=== PATIENT | female | born 1980 | race Two or more races ===

== ENCOUNTER 2017-07-09 19:01 | Emergency (ER) | payer MEDICAID ==
[~2017-07-09] VITALS: Ht 154.9 cm; Wt 104.3 kg
[~2017-07-09 19:01] MED LIST: PREN-145 OR
[2017-07-09] MEDS ORDERED: cloNIDine HCL 0.1 MG TAB ONE (19:15)
[2017-07-09 19:18] VITALS: BP 190/97
[2017-07-09] MEDS ORDERED: cloNIDine HCL 0.1 MG TAB PO ONE (19:30)
[2017-07-09 19:51] LABS: Basophils # (auto) 0.1 uL; Basophils % (auto) 0.8 % (0.0-2.0); Eosinophils # (auto) 0.2 uL; Eosinophils % (auto) 1.8 % (0.0-7.0); Hematocrit 41.2 % (36.0-46.0); Hemoglobin 13.8 g/dL (12.2-16.2); Lymphocytes # (auto) 2.7 uL; Lymphocytes % (auto) 28.1 % (10.0-50.0); Mean Corpuscular Hemoglobin 29.9 pg (28.0-32.0); Mean Corpuscular Hgb Conc. 33.6 g/dL (32.0-36.0); Monocytes # (auto) 0.6 uL; Monocytes % (auto) 6.4 % (0.0-12.0); Neutrophils # (auto) 6.1 uL; Neutrophils % (auto) 62.9 % (37.0-80.0); Platelet Count (auto) 234 10^3/uL (140-450); Red Blood Cells 4.63 10^6/uL (4.0-5.20); Red Cell Distribution Width 13.6 % (11.8-14.3); White Blood Cell 9.6 10^3/uL (4.4-10.8)
[2017-07-09 20:12] LABS: Albumin 3.9 g/dL (3.4-5.0); BUN/Creatinine Ratio 15.3; Bilirubin, Total 0.2 mg/dL (0.2-1.0); Calcium 9.1 mg/dL (8.5-10.1); Potassium 4.1 mmol/L (3.5-5.1); Total Protein 7.5 g/dL (6.4-8.2)
== END 2017-07-09 23:58 | disposition left against medical advice (07) ==
LOC: ER 19:01
DX: M54.2 Cervicalgia (principal); Z53.21 Procedure and treatment not carried out due to patient leaving prior to being seen by health care provider
CPT/HCPCS: 36415; 80053; 85025

== ENCOUNTER 2017-07-12 11:10 | Emergency (ER) | payer MEDICAID, OTHER ==
[~2017-07-12] VITALS: Ht 154.9 cm; Wt 86.2 kg
[2017-07-12 12:28] LABS: Basophils # (auto) 0.1 uL; Basophils % (auto) 0.8 % (0.0-2.0); Eosinophils # (auto) 0.2 uL; Hematocrit 43.3 % (36.0-46.0); Hemoglobin 14.5 g/dL (12.2-16.2); Lymphocytes # (auto) 2.3 uL; Lymphocytes % (auto) 29.1 % (10.0-50.0); Mean Corpuscular Hemoglobin 29.7 pg (28.0-32.0); Mean Corpuscular Hgb Conc. 33.5 g/dL (32.0-36.0); Mean Corpuscular Volume 88.7 fL (80.0-100.0); Monocytes # (auto) 0.4 uL; Monocytes % (auto) 4.6 % (0.0-12.0); Neutrophils # (auto) 5.1 uL; Neutrophils % (auto) 63.5 % (37.0-80.0); Nucleated Red Blood Cells % 0.1 %; Platelet Count (auto) 230 10^3/uL (140-450); Red Blood Cells 4.89 10^6/uL (4.0-5.20); Red Cell Distribution Width 13.4 % (11.8-14.3)
[2017-07-12 12:45] LABS: Albumin 3.8 g/dL (3.4-5.0); BUN/Creatinine Ratio 11.3; Calcium 8.6 mg/dL (8.5-10.1); Potassium 4.2 mmol/L (3.5-5.1)
[2017-07-12 12:49] LABS: Bilirubin, Total 0.4 mg/dL (0.2-1.0); Total Protein 7.5 g/dL (6.4-8.2)
[2017-07-12 13:22] LABS: Urine Blood 1+ /uL (Negative); Urine Specific Gravity 1.018 (1.001-1.035)
[2017-07-12 13:23] LABS: Urine WBC 6 /hpf (0 - 5)
[2017-07-12 13:24] LABS: Urine Bacteria MANY /hpf (None Seen)
[2017-07-12 14:43] VITALS: BP 144/88
== END 2017-07-12 14:46 | disposition home or self-care (01) ==
LOC: ER 11:10
DX: S33.5XXA Sprain of ligaments of lumbar spine, initial encounter (principal); N39.0 Urinary tract infection, site not specified; X58.XXXA Exposure to other specified factors, initial encounter; Y93.89 Activity, other specified; Y92.89 Other specified places as the place of occurrence of the external cause; Y99.8 Other external cause status
CPT/HCPCS: 36415; 72100; 80053; 81001; 81025; 85025

== ENCOUNTER 2021-01-03 00:57 | Inpatient (IN) | payer MEDICAID ==
[~2021-01-03] VITALS: Ht 154.9 cm; Wt 110.3 kg
[2021-01-03 02:20] LABS: Basophils # (auto) 0.1 10 ^3/uL (0-0.2); Basophils % (auto) 0.4 % (0.0-2.0); Eosinophils # (auto) 0.2 10 ^3/uL (0-0.8); Eosinophils % (auto) 1.5 % (0.0-7.0); Hematocrit 39.2 % (36.0-46.0); Hemoglobin 12.9 g/dL (12.2-16.2); Lymphocytes # (auto) 2.5 10 ^3/uL (0.4-5.4); Lymphocytes % (auto) 19.3 % (10.0-50.0); Mean Corpuscular Hemoglobin 27.8 pg (28.0-32.0); Mean Corpuscular Hgb Conc. 32.9 g/dL (32.0-36.0); Mean Corpuscular Volume 84.5 fL (80.0-100.0); Monocytes # (auto) 0.6 10 ^3/uL (0-1.3); Monocytes % (auto) 4.9 % (0.0-12.0); Neutrophils # (auto) 9.5 10 ^3/uL (1.6-8.6); Neutrophils % (auto) 73.9 % (37.0-80.0); Red Blood Cells 4.63 10^6/uL (4.0-5.20); Red Cell Distribution Width 14.4 % (11.8-14.3); White Blood Cell 12.9 10^3/uL (4.4-10.8)
[2021-01-03 02:51] LABS: Albumin 3.6 g/dL (3.4-5.0); Calcium 8.7 mg/dL (8.5-10.1); Potassium 3.4 mmol/L (3.5-5.1)
[2021-01-03 02:53] LABS: BUN/Creatinine Ratio 11.7
[2021-01-03 02:55] LABS: Bilirubin, Total 0.4 mg/dL (0.2-1.0); Total Protein 7.6 g/dL (6.4-8.2)
[2021-01-03 04:56] LABS: Urine Bacteria MANY /hpf (None Seen); Urine Blood 1+ /uL (Negative); Urine Hyaline Cast FEW /lpf (0 - 2); Urine Mucus FEW (None Seen); Urine Specific Gravity 1.027 (1.001-1.035); Urine WBC 20 /hpf (0 - 5)
[2021-01-03] MEDS ORDERED: ONDANSETRON HCL 4 MG/2 ML VIAL IV ONE (07:00)
[2021-01-03] MEDS ORDERED: MORPHINE SULFATE 4 MG/ML SYR/VIAL IV ONE (07:00)
[2021-01-03] MEDS ORDERED: cloNIDine HCL 0.1 MG TAB PO ONE (07:00)
[2021-01-03] MEDS ORDERED: metroNIDAZOLE 500MG/100ML 100 ML IV ONE (11:15)
[2021-01-03] MEDS ORDERED: cefTRIAXone 1GM/50ML D5W 50 ML IV ONE (11:15)
[2021-01-03] MEDS ORDERED: LACTATED RINGER'S 1,000 ML IV ONE (11:45)
[2021-01-03] MEDS ORDERED: NITROGLYCERIN 0.4 MG SL TAB SL PRN ×2 (11:45→13:00)
[2021-01-03] MEDS ORDERED: MORPHINE SULFATE INJECTION 2 MG/ML SYRG IV PRN ×3 (11:45→13:00)
[2021-01-03] MEDS ORDERED: PANTOPRAZOLE 40 MG/10 ML VIAL INJ IV ONE (13:00)
[2021-01-03] MEDS ORDERED: ONDANSETRON HCL 4 MG/2 ML VIAL IV PRN (13:00)
[2021-01-03] MEDS ORDERED: BENAZEPRIL HCL 10 MG TAB PO ONE (13:00)
[2021-01-03] MEDS ORDERED: HYDROcodone-ACET 5/325MG TAB PO PRN (13:00)
[2021-01-03] MEDS ORDERED: DOCUSATE SOD 100 MG CAP PO PRN (13:00)
[2021-01-03] MEDS ORDERED: LORazepam 0.5 MG TAB PO PRN (13:00)
[2021-01-03] MEDS ORDERED: ACETAMINOPHEN 325 MG TAB PO PRN (13:00)
[2021-01-03] MEDS ORDERED: hydrALAZINE HCL 20 MG/ML VL IV PRN (13:00)
[2021-01-03] MEDS ORDERED: POTASSIUM CHL 20MEQ/100ML 100 ML IV ONE (13:00)
[2021-01-03] MEDS ORDERED: NIFEdipine ER 30 MG TAB PO ONE (13:00)
[2021-01-03] MEDS ORDERED: ALUM & MAG HYDROX-SIMETH LIQ(MAALOX) 30 ML PO PRN (13:00)
[2021-01-03 14:23] LABS: Alcohol, Urine < 3.0 mg/dL (0-10); Amphetamine Screen, Urine NEGATIVE (NEGATIVE); Barbiturate Scree,Urine NEGATIVE (NEGATIVE); Benzodiazephine Screen, Urine NEGATIVE (NEGATIVE); Cannabinoid Screen, Urine NEGATIVE (NEGATIVE); Cocaine Screen, Urine NEGATIVE (NEGATIVE); Opiate Scree,Urine NEGATIVE (NEGATIVE); Phencyclidine Screen, Urine NEGATIVE (NEGATIVE)
[2021-01-03] MEDS ORDERED: GASTROGRAFIN 120 ML SOL ONE (14:39)
[2021-01-03 14:51] LABS: Cholesterol 118 mg/dL (< 200); HDL Cholesterol 43 mg/dL (40-59); LDL Cholesterol 68 mg/dL (< 100); Triglycerides 61 mg/dL (< 150)
[2021-01-03] MEDS: SODIUM CHLORIDE 0.9% 1,000 ML IV SCH ×2 (16:40→20:27)
[2021-01-03] MEDS ORDERED: INFLUENZA QUAD 2021-2022 0.5 ML SYRG IM ONE (19:00)
[2021-01-03] MEDS: metroNIDAZOLE 500MG/100ML 100 ML IV SCH (20:27)
[2021-01-03] MEDS: ATORVASTATIN 20 MG TAB PO SCH (20:27)
[2021-01-03 22:00] VITALS: BP 111/71
[2021-01-04 05:00] VITALS: BP 108/64
[2021-01-04] MEDS: metroNIDAZOLE 500MG/100ML 100 ML IV SCH ×3 (05:20→22:20)
[2021-01-04 09:00] VITALS: BP 126/86
[2021-01-04] MEDS: ASPirin 81 mg TAB PO SCH (09:47)
[2021-01-04] MEDS: cefTRIAXone 1GM/50ML D5W 50 ML IV SCH (09:47)
[2021-01-04] MEDS: PANTOPRAZOLE 40 MG/10 ML VIAL INJ IV SCH (09:47)
[2021-01-04] MEDS: NIFEdipine ER 30 MG TAB PO SCH (09:48)
[2021-01-04] MEDS: BENAZEPRIL HCL 10 MG TAB PO SCH (09:48)
[2021-01-04] MEDS ORDERED: ENOXAPARIN SOD 40 MG/0.4 ML SYRINGE SC SCH (10:00)
[2021-01-04 13:00] VITALS: BP 117/65
[2021-01-04 17:00] VITALS: BP 125/73
[2021-01-04 22:00] VITALS: BP 124/72
[2021-01-04] MEDS: ATORVASTATIN 20 MG TAB PO SCH (22:20)
[2021-01-04] MEDS: ENOXAPARIN SOD 40 MG/0.4 ML SYRINGE SC SCH (22:20)
[2021-01-05] MEDS: SODIUM CHLORIDE 0.9% 1,000 ML IV SCH ×2 (01:29→13:32)
[2021-01-05 05:00] VITALS: BP 127/69
[2021-01-05] MEDS: metroNIDAZOLE 500MG/100ML 100 ML IV SCH ×2 (05:44→13:31)
[2021-01-05 06:50] LABS: Basophils # (auto) 0 10 ^3/uL (0-0.2); Basophils % (auto) 0.3 % (0.0-2.0); Eosinophils # (auto) 0.1 10 ^3/uL (0-0.8); Hematocrit 36.1 % (36.0-46.0); Hemoglobin 12.1 g/dL (12.2-16.2); Lymphocytes # (auto) 1.7 10 ^3/uL (0.4-5.4); Lymphocytes % (auto) 15.6 % (10.0-50.0); Mean Corpuscular Hemoglobin 28.2 pg (28.0-32.0); Mean Corpuscular Hgb Conc. 33.6 g/dL (32.0-36.0); Mean Corpuscular Volume 83.9 fL (80.0-100.0); Monocytes # (auto) 0.6 10 ^3/uL (0-1.3); Monocytes % (auto) 5.8 % (0.0-12.0); Neutrophils # (auto) 8.3 10 ^3/uL (1.6-8.6); Neutrophils % (auto) 77.3 % (37.0-80.0); Nucleated Red Blood Cells % 0.1 %; Red Cell Distribution Width 14.2 % (11.8-14.3); White Blood Cell 10.7 10^3/uL (4.4-10.8)
[2021-01-05 07:15] LABS: Calcium 7.9 mg/dL (8.5-10.1); Potassium 3.1 mmol/L (3.5-5.1)
[2021-01-05 07:18] LABS: BUN/Creatinine Ratio 6.2
[2021-01-05 09:00] VITALS: BP 132/76
[2021-01-05] MEDS: PANTOPRAZOLE 40 MG/10 ML VIAL INJ IV SCH (09:24)
[2021-01-05] MEDS: ENOXAPARIN SOD 40 MG/0.4 ML SYRINGE SC SCH (09:25)
[2021-01-05] MEDS: NIFEdipine ER 30 MG TAB PO SCH (09:25)
[2021-01-05] MEDS: ASPirin 81 mg TAB PO SCH (09:26)
[2021-01-05] MEDS: cefTRIAXone 1GM/50ML D5W 50 ML IV SCH (09:26)
[2021-01-05] MEDS: BENAZEPRIL HCL 10 MG TAB PO SCH (09:26)
[2021-01-05] MEDS ORDERED: POTASSIUM CHL 20 Meq TABLET PO ONE (11:45)
[2021-01-05] MEDS ORDERED: levoFLOXacin 500 MG TAB PO ONE (12:00)
[2021-01-05 13:00] VITALS: BP 125/91
== END 2021-01-05 17:00 | disposition home or self-care (01) | DRG 249 ==
LOC: ER 00:58 → OVERFLOW 12:55 → CENTRAL 17:58
PROVIDERS: ADMIT Hospitalist; ATTEND Hospitalist
DX: K52.9 Noninfective gastroenteritis and colitis, unspecified (principal); E66.01 Morbid (severe) obesity due to excess calories; E78.5 Hyperlipidemia, unspecified; B96.20 Unspecified Escherichia coli [E. coli] as the cause of diseases classified elsewhere; B96.89 Other specified bacterial agents as the cause of diseases classified elsewhere; Z68.42 Body mass index [BMI] 45.0-49.9, adult; I10 Essential (primary) hypertension; I16.9 Hypertensive crisis, unspecified; N39.0 Urinary tract infection, site not specified; Z20.822 Contact with and (suspected) exposure to COVID-19; Z82.49 Family history of ischemic heart disease and other diseases of the circulatory system; Z82.3 Family history of stroke; Z83.3 Family history of diabetes mellitus; Z98.51 Tubal ligation status
CPT/HCPCS: 36415; 71045; 74176; 74250; 76830; 76856; 80048; 80053; 80061; 80307; 81001; 83036; 83605; 83690; 84484; 84702; 85025; 87040; 87086; 87088; 87186; 87426; 90686; 96365; 96366; 96367; 96368; 96375; C9113; G0378; J0696; J2405; J3480; J3490

== ENCOUNTER 2023-11-12 11:36 | Inpatient (IN) | payer MEDICAID ==
[~2023-11-12] VITALS: Ht 154.9 cm; Wt 116.9 kg
[2023-11-12 12:33] LABS: Urine Bacteria None Seen /hpf (None Seen)
[2023-11-12 12:46] LABS: Urine Blood 1+ /uL (Negative); Urine Clarity Clear (Clear); Urine Color Yellow (Yellow); Urine Mucus FEW (None Seen); Urine Protein, UAD Negative (Negative); Urine Specific Gravity 1.013 (1.001-1.035); Urine Urobilinogen Normal (Negative); Urine WBC 1 /hpf (0 - 5)
[2023-11-12 14:01] LABS: Basophils # (auto) 0.1 10 ^3/uL (0-0.2); Eosinophils # (auto) 0.2 10 ^3/uL (0-0.8); Lymphocytes # (auto) 1.3 10 ^3/uL (0.4-5.4); Monocytes # (auto) 0.4 10 ^3/uL (0-1.3); Neutrophils # (auto) 6.6 10 ^3/uL (1.6-8.6); Nucleated Red Blood Cells % 0.1 %; Platelet Count (auto) 242 10^3/uL (140-450); Red Cell Distribution Width 16.1 % (11.8-14.3)
[2023-11-12 14:02] LABS: Basophils % (auto) 0.7 % (0.0-2.0); Eosinophils % (auto) 1.9 % (0.0-7.0); Hematocrit 37.8 % (36.0-46.0); Hemoglobin 12.5 g/dL (12.2-16.2); Lymphocytes % (auto) 14.9 % (10.0-50.0); Mean Corpuscular Hemoglobin 26.6 pg (28.0-32.0); Mean Corpuscular Hgb Conc. 33.2 g/dL (32.0-36.0); Mean Corpuscular Volume 80.2 fL (80.0-100.0); Monocytes % (auto) 4.3 % (0.0-12.0); Neutrophils % (auto) 78.2 % (37.0-80.0); Red Blood Cells 4.71 10^6/uL (4.0-5.20); White Blood Cell 8.5 10^3/uL (4.4-10.8)
[2023-11-12 14:19] LABS: Alanine Aminotransferase 202 U/L (7-40); Alkaline Phosphatase 141 U/L (46-116)
[2023-11-12 14:20] LABS: Albumin 4.4 g/dL (3.2-4.8); Anion Gap 7 (5-15); Aspartate Aminotransferase 271 U/L (13-40); BUN/Creatinine Ratio 9.4 (10.0-20.0); Bilirubin, Total 1.1 mg/dL (0.2-1.0); Blood Urea Nitrogen 8 mg/dL (9-23); Calcium 9.4 mg/dL (8.7-10.4); Carbon Dioxide 25 mmol/L (20-30); Chloride 106 mmol/L (98-107); Glucose 112 mg/dL (74-106); Potassium 3.7 mmol/L (3.5-5.1); Sodium 138 mmol/L (136-145)
[2023-11-12 14:34] LABS: Lipase 32 U/L (12-53)
[2023-11-12] MEDS: NITROGLYCERIN 0.4 MG SL TAB SL ONE ×2 (15:00→17:44)
[2023-11-12] MEDS: LABETALOL HCL 20 MG/4 ML VL IV ONE (15:23)
[2023-11-12] MEDS: PIPERACILLIN-TAZOB 3.375GM 100 ML IV ONE (23:52)
[2023-11-13] VITALS (8 sets, daily range): BP systolic 137–160; BP diastolic 75–86; PULSE 78–99; RESP 16–20; TEMP 98.1–98.7; O2SAT 97–99
[2023-11-13] MEDS ORDERED: ONDANSETRON HCL 4 MG/2 ML VIAL IV PRN (00:30)
[2023-11-13] MEDS ORDERED: NITROGLYCERIN 0.4 MG SL TAB SL PRN (00:30)
[2023-11-13] MEDS ORDERED: DOCUSATE SOD 100 MG CAP PO PRN (00:30)
[2023-11-13] MEDS ORDERED: IBUPROFEN 600 MG TAB PO PRN (00:30)
[2023-11-13] MEDS ORDERED: MORPHINE SULFATE INJ 2 MG/ml SYRG IV PRN ×2 (00:30)
[2023-11-13] MEDS: hydrALAZINE HCL 20 MG/ML VL IV PRN (01:06)
[2023-11-13] MEDS: amLODIPine BESYLATE 5 MG TAB PO ONE (03:26)
[2023-11-13] MEDS: SODIUM CHLORIDE 0.9% 1,000 ML IV SCH (05:00)
[2023-11-13] MEDS ORDERED: LISI20TA56 PO (05:32)
[2023-11-13] MEDS: METOPROLOL TARTRATE 25 MG TAB PO SCH (10:23)
[2023-11-13] MEDS: amLODIPine BESYLATE 5 MG TAB PO SCH (10:23)
[2023-11-13 10:38] LABS: Alanine Aminotransferase 190 U/L (7-40); Albumin 4.2 g/dL (3.2-4.8); Alkaline Phosphatase 143 U/L (46-116); Anion Gap 7 (5-15); Aspartate Aminotransferase 154 U/L (13-40); BUN/Creatinine Ratio 9.2 (10.0-20.0); Bilirubin, Total 0.7 mg/dL (0.2-1.0); Blood Alcohol < 3.0 mg/dL (<10); Blood Urea Nitrogen 7 mg/dL (9-23); Calcium 9.2 mg/dL (8.7-10.4); Carbon Dioxide 25 mmol/L (20-30); Chloride 106 mmol/L (98-107); Cholesterol 151 mg/dL (< 200); Glucose 96 mg/dL (74-106); HDL Cholesterol 51 mg/dL (40-59); LDL Cholesterol 81 mg/dL (< 100); Potassium 3.7 mmol/L (3.5-5.1); Sodium 138 mmol/L (136-145); Total Protein 6.7 g/dL (5.7-8.2); Triglycerides 100 mg/dL (< 150)
[2023-11-13 13:39] LABS: Amphetamine Screen, Urine Neg (NEGATIVE); Barbiturate Scree,Urine Neg (NEGATIVE); Benzodiazephine Screen, Urine Neg (NEGATIVE); Cocaine Screen, Urine Neg (NEGATIVE)
[2023-11-13 13:40] LABS: Cannabinoid Screen, Urine Neg (NEGATIVE); Opiate Scree,Urine Neg (NEGATIVE); Phencyclidine Screen, Urine Neg (NEGATIVE)
[2023-11-14] VITALS (7 sets, daily range): BP systolic 107–161; BP diastolic 60–84; PULSE 56–86; RESP 16–20; TEMP 98–99.1; O2SAT 95–99
[2023-11-14 06:19] LABS: INR 0.99 (0.9-1.15); Prothrombin Time 10.5 sec (9.3-11.8)
[2023-11-14 06:20] LABS: Alanine Aminotransferase 137 U/L (7-40); Albumin 4.1 g/dL (3.2-4.8); Alkaline Phosphatase 134 U/L (46-116); Anion Gap 8 (5-15); Aspartate Aminotransferase 74 U/L (13-40); BUN/Creatinine Ratio 11.1 (10.0-20.0); Blood Urea Nitrogen 9 mg/dL (9-23); Carbon Dioxide 24 mmol/L (20-30); Chloride 107 mmol/L (98-107); Glucose 84 mg/dL (74-106); Potassium 3.6 mmol/L (3.5-5.1); Sodium 139 mmol/L (136-145)
[2023-11-14 06:21] LABS: Bilirubin, Total 0.8 mg/dL (0.2-1.0); Total Protein 6.5 g/dL (5.7-8.2)
[2023-11-14 06:25] LABS: Basophils # (auto) 0.1 10 ^3/uL (0-0.2); Basophils % (auto) 0.7 % (0.0-2.0); Eosinophils # (auto) 0.2 10 ^3/uL (0-0.8); Eosinophils % (auto) 2.6 % (0.0-7.0); Hematocrit 37.9 % (36.0-46.0); Hemoglobin 12.6 g/dL (12.2-16.2); Lymphocytes % (auto) 26.3 % (10.0-50.0); Mean Corpuscular Hemoglobin 27.1 pg (28.0-32.0); Mean Corpuscular Hgb Conc. 33.4 g/dL (32.0-36.0); Mean Corpuscular Volume 81.1 fL (80.0-100.0); Monocytes # (auto) 0.5 10 ^3/uL (0-1.3); Monocytes % (auto) 6.2 % (0.0-12.0); Neutrophils # (auto) 4.9 10 ^3/uL (1.6-8.6); Neutrophils % (auto) 64.2 % (37.0-80.0); Nucleated Red Blood Cells % 0.2 %; Platelet Count (auto) 246 10^3/uL (140-450); Red Blood Cells 4.67 10^6/uL (4.0-5.20); Red Cell Distribution Width 16.7 % (11.8-14.3); White Blood Cell 7.6 10^3/uL (4.4-10.8)
[2023-11-14] MEDS ORDERED: HYDROmorphone HCL 2 MG/ML VL/or syr ONE (13:49)
[2023-11-14] MEDS ORDERED: fentaNYL CITRATE 100 MCG/2 ML VL ONE (13:51)
[2023-11-14] MEDS ORDERED: MIDAZOLAM HCL 2MG/2ML 2ml VIAL (1mg/ml) ONE (13:51)
[2023-11-14] MEDS: ceFAZolin 1GM/50ML 100 ML IV ONE (13:52)
[2023-11-14] MEDS ORDERED: ONDANSETRON HCL 4 MG/2 ML VIAL ONE (13:55)
[2023-11-14] MEDS ORDERED: LIDOCAINE 2% (LOCAL ANESTH.) PF 5ml SDV ONE (13:55)
[2023-11-14] MEDS ORDERED: PROPOFOL 10 MG/ML 20 ML IV ONE ×2 (13:56→15:08)
[2023-11-14] MEDS ORDERED: ROCURONIUM 10MG/ML 10ML VIAL IV ONE (13:56)
[2023-11-14] MEDS: LIDOCAINE W/ EPINEPHRINE 1% 20ML VIAL ONE (14:25)
[2023-11-14] MEDS ORDERED: ceFAZolin 1GM VL ONE (14:28)
[2023-11-14] MEDS ORDERED: ONDANSETRON HCL 4 MG/2 ML VIAL IV ONE (14:45)
[2023-11-14] MEDS ORDERED: HYDROmorphone HCL 2 MG/ML VL/or syr IV PRN ×2 (14:45)
[2023-11-14] MEDS ORDERED: NEOSTIGMINE 1 MG/ML INJ (10mg/10ML VIAL) ONE (15:08)
[2023-11-14] MEDS: PIPERACILLIN-TAZOB 3.375GM 100 ML IV SCH (22:40)
[2023-11-14] MEDS: HYDROcodone-ACET 5/325MG TAB PO PRN (23:34)
[2023-11-15 01:00] VITALS: BP 122/63; PULSE 71; RESP 16; TEMP 98.8; O2SAT 93
[2023-11-15 05:00] VITALS: BP 122/61; PULSE 67; RESP 18; TEMP 98.7; O2SAT 95
[2023-11-15 07:08] LABS: Alanine Aminotransferase 113 U/L (7-40); Alkaline Phosphatase 139 U/L (46-116); Anion Gap 8 (5-15); Aspartate Aminotransferase 110 U/L (13-40); BUN/Creatinine Ratio 8.2 (10.0-20.0); Blood Urea Nitrogen 7 mg/dL (9-23); Calcium 8.5 mg/dL (8.7-10.4); Carbon Dioxide 23 mmol/L (20-30); Chloride 106 mmol/L (98-107); Glucose 87 mg/dL (74-106); Potassium 3.5 mmol/L (3.5-5.1); Sodium 137 mmol/L (136-145)
[2023-11-15 07:09] LABS: Albumin 3.8 g/dL (3.2-4.8)
[2023-11-15 07:10] LABS: Bilirubin, Total 0.7 mg/dL (0.2-1.0)
[2023-11-15 08:00] VITALS: PULSE 81; RESP 16
[2023-11-15 08:11] LABS: Eosinophils # (auto) 0.1 10 ^3/uL (0-0.8); Hemoglobin 11.9 g/dL (12.2-16.2); Nucleated Red Blood Cells % 0.1 %; Red Cell Distribution Width 16.4 % (11.8-14.3)
[2023-11-15 08:13] LABS: Basophils # (auto) 0.1 10 ^3/uL (0-0.2); Basophils % (auto) 0.6 % (0.0-2.0); Eosinophils % (auto) 0.8 % (0.0-7.0); Hematocrit 35.9 % (36.0-46.0); Lymphocytes # (auto) 2.1 10 ^3/uL (0.4-5.4); Lymphocytes % (auto) 21.8 % (10.0-50.0); Mean Corpuscular Hemoglobin 26.8 pg (28.0-32.0); Mean Corpuscular Hgb Conc. 33.1 g/dL (32.0-36.0); Mean Corpuscular Volume 80.9 fL (80.0-100.0); Monocytes # (auto) 0.6 10 ^3/uL (0-1.3); Monocytes % (auto) 5.7 % (0.0-12.0); Neutrophils % (auto) 71.1 % (37.0-80.0); Platelet Count (auto) 231 10^3/uL (140-450); Red Blood Cells 4.44 10^6/uL (4.0-5.20); White Blood Cell 9.8 10^3/uL (4.4-10.8)
[2023-11-15 09:00] VITALS: BP 161/83; PULSE 79; RESP 17; TEMP 98.1; O2SAT 94
[2023-11-15] MEDS ORDERED: CIPR250T26 PO (09:59)
[2023-11-15] MEDS ORDERED: MET25T PO (09:59)
[2023-11-15] MEDS ORDERED: MET500T PO (09:59)
[2023-11-15] MEDS ORDERED: GLYCOPYRROLATE 0.2 MG/ML 1ML VIAL IV ONE (11:30)
== END 2023-11-15 11:58 | disposition home or self-care (01) | DRG 263 ==
LOC: ER 11:36 → OVERFLOW 11-13 00:36 → CENTRAL 11-13 05:39
PROVIDERS: ADMIT Internal Medicine Pulmonary Disease; ATTEND Internal Medicine Pulmonary Disease
PROC: 0FT44ZZ Resection of Gallbladder, Percutaneous Endoscopic Approach (ICD-10-PCS; principal; 2023-11-14 13:52)
DX: K80.10 Calculus of gallbladder with chronic cholecystitis without obstruction (principal); E66.01 Morbid (severe) obesity due to excess calories; Z68.42 Body mass index [BMI] 45.0-49.9, adult; I10 Essential (primary) hypertension; R74.8 Abnormal levels of other serum enzymes; Z98.891 History of uterine scar from previous surgery; Z83.3 Family history of diabetes mellitus; Z82.49 Family history of ischemic heart disease and other diseases of the circulatory system; Z82.3 Family history of stroke
CPT/HCPCS: 36415; 74176; 74181; 76705; 80053; 80061; 80307; 80320; 81001; 81025; 83690; 84702; 85025; 85610; 85730; G0378; J0690; J2001; J2250; J2405; J2543; J2704